=== PATIENT | male | born 2000 | race Caucasian/White ===

== ENCOUNTER 2023-10-26 15:48 | Emergency (ER) | payer OTHER ==
[~2023-10-26] VITALS: Ht 185.4 cm; Wt 97.5 kg
--- NOTE | 2023-10-26 16:15 | NUR ---
RECEIVED PT 23 YRS MALE WALKING IN FROM HOME S/P LEXI ZHU AT 1030 AM AUDRA MO DISTRESS
[2023-10-26] MEDS ORDERED: KETOROLAC TROMETHAMINE 15 MG/ML VIAL ONE (16:51)
[2023-10-26] MEDS ORDERED: ACETAMINOPHEN ES 500 MG TABLET ONE (16:51)
[2023-10-26] MEDS: KETOROLAC TROMETHAMINE 15 MG/ML VIAL IM ONE (17:00)
[2023-10-26] MEDS: ACETAMINOPHEN ES 500 MG TABLET PO ONE (17:01)
[2023-10-26] MEDS ORDERED: ONDANSETRON 4 MG TAB.RAPDIS ONE (17:03)
[2023-10-26] MEDS: ONDANSETRON 4 MG TAB.RAPDIS PO ONE (17:03)
--- NOTE | 2023-10-26 17:10 | NUR ---
X RAY DONE AT BED SIDE
--- NOTE | 2023-10-26 17:30 | NUR ---
SEEN BY PROVIDER
[2023-10-26] MEDS ORDERED: IBUP-1955 PO (19:16)
[2023-10-26] MEDS ORDERED: ACET-2605 PO (19:16)
[2023-10-26] MEDS ORDERED: CYCL5TAB PO (19:16)
--- NOTE | 2023-10-26 19:25 | NUR ---
HAND OFF [facility] LOVE
[2023-10-26 19:29] VITALS: BP 129/61; TEMP 98.5; O2SAT 99
--- NOTE | 2023-10-26 19:30 | NUR ---
Patient discharged to home in stable condition. Written and verbal after care instructions given. Patient verbalizes understanding of instruction.
== END 2023-10-26 19:31 | disposition home or self-care (01) ==
LOC: ER 15:51 → EDBD 15:51 → ER 19:31
DX: M25.512 Pain in left shoulder (principal); M54.2 Cervicalgia; R11.0 Nausea; V49.49XA Driver injured in collision with other motor vehicles in traffic accident, initial encounter; Y93.89 Activity, other specified; Y92.488 Other paved roadways as the place of occurrence of the external cause; Y99.8 Other external cause status
CPT/HCPCS: 99285; 73200; 96372; 73030; Q0162; J1885